=== PATIENT | male | born 1980 | race Caucasian/White ===

== ENCOUNTER 2017-01-11 14:10 | Emergency (ER) | payer OTHER ==
[2017-01-11 14:53] VITALS: BP 129/76
[2017-01-11] MEDS ORDERED: Tetan/Diph/Pertus SYR(Tdap)* 0.5 ML SYR(BOOSTRIX) use SYR IM ONE (15:32)
--- NOTE | 2017-01-11 15:38 | UC ---
Laceration HPI - History Of Current Complaint Chief Complaint: UCLaceration Stated Complaint: RIGHT UPPER EYE LACERATION Time Seen by Provider: 01/11/17 15:32 Hx Obtained From: Patient Laceration Location: Face - right eyebrow. Mechanism Of Injury: Blunt Trauma - Hit face on a pole Onset/Duration: Sudden Onset - at 1300 Pain Intensity: 2 Aggravating Factors: Movement Facial Trauma: 1 - 7mm Related History: Dominant Hand Right - Allergies/Home Medications Allergies/Adverse Reactions: Allergies Allergy/AdvReac Type Severity Reaction Status Date / Time Zolpidem [From Ambien] Allergy Hallucinati Verified 01/11/17 14:46 ons Home Medications: Home Medications Acetaminophen TAB* [Tylenol TAB*] 650 mg PO Q4H PRN 01/11/17 [History Confirmed 01/11/17] PMH/Surg Hx/FS Hx/Imm Hx - Surgical History Surgical History: Yes Surgery Procedure, Year, and Place: Fisher teeth - Family History Known Family History: Positive: Diabetes Negative: Cardiac Disease, Hypertension - Social History Occupation: Employed Part-time, Student Lives: With Family Alcohol Use: Occasionally Substance Use Type: None Smoking Status (MU): Current Every Day Smoker Type: Smokeless Tobacco - Immunization History Most Recent Influenza Vaccination: 2015 Most Recent Tetanus Shot: Unk Most Recent Pneumonia Vaccination: N/A Review of Systems ENT: Nasal Discharge Respiratory: Cough Neurological: Headache - frontal sinus headache. All Other Systems Reviewed And Are Negative: Yes Physical Exam Triage Information Reviewed: Yes Appearance: Well-Appearing, No Pain Distress, Well-Nourished Vital Signs: Initial Vital Signs Temp 98.2 F 01/11/17 14:47 Pulse 80 01/11/17 14:47 Resp 18 01/11/17 14:47 BP 129/76 01/11/17 14:47 Pulse Ox 99 01/11/17 14:47 Vital Signs Reviewed: Yes Eyes: Positive: Conjunctiva Clear ENT: Positive: TMs normal - AD, obstructed by wax. Neck exam: Normal Respiratory Exam: Normal Cardiovascular Exam: Normal Musculoskeletal Exam: Normal Neurological Exam: Normal Psychological Exam: Normal Skin: Positive: Other - Verticle laceration right eyebrow 0.7cm Laceration Repair - Laceration Repair 1 Description: Linear - right eyebrow Laceration Size After Repair: Length (cm) - 0.7 Modified For Repair: No Cleansing Completed Via Routine Prep: Yes Irrigation With Pressure Irrigation Device: Yes Closure Material: Skin Adhesive Laceration Course/Dx - Differential Dx - Laceration/Wound Differental Diagnoses: Abrasion, Avulsion, Laceration Provider Diagnoses: Open wound forehead. Simple 0.7cm repair Discharge - Discharge Plan Condition: Stable Disposition: HOME Patient Education Materials: Skin Adhesive Care (ED) Additional Instructions: Use sunscreen daily for the next year to prevent worsening scarring. Neutragena Baby Pure and Free or Blue Lizard Face or Sensitive for the face. Coppertone Waterbabies Pure and Simple for the body. These sunscreens are great for the kids.
== END 2017-01-11 16:23 | disposition home or self-care (01) ==
LOC: UCCORT 14:10
DX: S01.111A Laceration without foreign body of right eyelid and periocular area, initial encounter (principal); W22.09XA Striking against other stationary object, initial encounter; Y93.9 Activity, unspecified; Y92.9 Unspecified place or not applicable; Z23 Encounter for immunization; H61.23 Impacted cerumen, bilateral; F17.210 Nicotine dependence, cigarettes, uncomplicated
CPT/HCPCS: 12011; 90471; 90715; 99201; G0463